=== PATIENT | male | born 1990 | race Caucasian/White ===

== ENCOUNTER 2017-02-05 12:20 | Emergency (ER) | payer OTHER ==
[2017-02-05 12:30] VITALS: BP 130/75
--- NOTE | 2017-02-05 13:10 | UC ---
Ear Complaint HPI - HPI Summary HPI Summary: 26 male presents with complaints of left ear pain, plugging and decreased hearing since Sunday02/02/17. Patient states he has only been using OTC analgesic ear drops in his ears and has had some discharge. Patient states he was just swimming in the ocean while [place] last week. Denies sticking anything in his ears and FB. No bleeding from ears. Denies any other complaints at this time. Denies fever/chills. Denies PMHx. - History of Current Complaint Chief Complaint: UCEar Stated Complaint: LEFT EAR COMPLAINT Time Seen by Provider: 02/05/17 12:31 Hx Obtained From: Patient Severity Initially: Mild Severity Currently: Moderate Pain Intensity: 3 Pain Scale Used: 0-10 Numeric - ache Aggravating Factors: Nothing Alleviating Factors: Nothing Associated Signs/Symptoms: Positive: Discharge, Hearing Loss - Allergies/Home Medications Allergies/Adverse Reactions: Allergies Allergy/AdvReac Type Severity Reaction Status Date / Time No Known Allergies Allergy Verified 02/05/17 12:32 PMH/Surg Hx/FS Hx/Imm Hx - Additional Past Medical History Additional PMH: Denies DM, HTN and asthma - Surgical History Surgical History: Yes Surgery Procedure, Year, and Place: right tm repair 2009 - Family History Known Family History: Positive: None - Social History Alcohol Use: Weekly Substance Use Type: None Smoking Status (MU): Never Smoked Tobacco - Immunization History Vaccination Up to Date: Yes Review of Systems Constitutional: Negative Skin: Negative Eyes: Negative ENT: Ear Ache - left Respiratory: Negative Cardiovascular: Negative Neurological: Negative All Other Systems Reviewed And Are Negative: Yes Physical Exam Triage Information Reviewed: Yes Appearance: Well-Appearing, No Pain Distress, Well-Nourished Vital Signs: Initial Vital Signs Temp 98.6 F 02/05/17 12:27 Pulse 86 02/05/17 12:27 Resp 14 02/05/17 12:27 BP 130/75 02/05/17 12:27 Pulse Ox 100 02/05/17 12:27 Vital Signs Reviewed: Yes Eye Exam: Normal Eyes: Positive: Conjunctiva Clear ENT: Positive: Hearing grossly normal, Pharynx normal, TMs normal - right, left EAC cerumen impaction, irrigated and able to see TM afterwards. TM normal. EAC of left ear appears to be inflammed, erythematous and whit exudate/discharge noted. left ear, otitis externa. Negative: Nasal congestion, Nasal drainage, TM bulging, TM dull, TM red, Tonsillar swelling, Tonsillar exudate Dental: Negative: Cervical Lymphadenopathy Neck: Positive: Supple, Nontender, No Lymphadenopathy Respiratory Exam: Normal Respiratory: Positive: Chest non-tender, Lungs clear, Normal breath sounds, No respiratory distress, No accessory muscle use. Negative: Crackles, Rhonchi, Stridor, Wheezing Cardiovascular: Positive: RRR, No Murmur, Pulses Normal Musculoskeletal: Positive: Strength Intact, ROM Intact Neurological Exam: Normal Skin Exam: Normal Ear Complaint Course/Dx - Course Course Of Treatment: left ear cerumen impaction, irrigated and EAC of left ear appears to be suffering otitis externa. had relief after irrigation. was recently swimming. will be treated with cortisporin. also instructed to use debrox in future for wax build up. only if needed. instructed not to use when using antibiotic drop. aware of worsening signs and symptoms. follow up PCP. - Differential Dx/Diagnosis Differential Diagnosis/HQI/PQRI: Cerumen Impaction, Otitis Externa, Otitis Media , Other Provider Diagnoses: left cerumen impaction, left otitis externa Discharge - Discharge Plan Condition: Stable Disposition: HOME Prescriptions: Carbamide Peroxide 6.5% OTIC* [DEBROX 6.5% Otic*] 5 drop LEFT EAR BID #1 bottle Neomyc/Polym/HC 1% OTIC SUSP* [Cortisporin Otic Susp 1%*] 4 drop LEFT EAR TID # 1 btl Patient Education Materials: Carbamide Peroxide (Into the ear), Cerumen Impaction (ED), Otitis Externa (ED), Neomycin/Polymyxin B/Hydrocortisone (Into the ear) Referrals: Chris Garcia DO [Primary Care Provider] - Additional Instructions: Use prescribed antibiotic drop into ear to help treat ear canal infection. Do not submerge ear into water, no swimming for the next 7-10 days, while symptoms persist. Use Debrox ear drops to help keep wax under control and decrease build up in the future, not while using antibiotics. This is also available over the counter. Use 5 drops twice a day and lay on your side for 5 minutes after application. Use for 4 days. Discontinue use and only use when experiencing symptoms. Do not stick q-tips into your ears, only clean outside of ears. If you develop worsening signs and symptoms such as ear pain, discharge or fever /chills please seek medical attention. Follow up with PCP.
== END 2017-02-05 13:57 | disposition home or self-care (01) ==
LOC: UCCORT 12:20
DX: H61.22 Impacted cerumen, left ear (principal); H60.92 Unspecified otitis externa, left ear
CPT/HCPCS: 99203; G0463